=== PATIENT | female | born 1955 | race Caucasian/White ===

== ENCOUNTER 2021-04-20 15:37 | Day surgery (SDC) | payer MEDICARE, OTHER ==
[2021-04-20] MEDS ORDERED: Depo-Medrol 40 MG/ML IM ONE (15:38)
[2021-04-20] MEDS ORDERED: Xylocaine 1% Vial 30 ML PF IJ ONE (15:38)
[2021-04-20] MEDS ORDERED: BUPIVACAINE 0.5% VIAL IJ ONE (15:38)
--- NOTE | 2021-04-20 21:08 | XRAY ---
Indication: Right hip injection. Intraoperative fluoroscopy provided for 13 seconds. Single digital spot image submitted for interpretation demonstrates needle tip just lateral to the right femur head. Small amount of contrast injected for needle tip placement. Correlate with intraoperative findings/report.
--- NOTE | 2021-04-20 21:10 | XRAY ---
13 seconds of fluoroscopy was used in surgery for a right intra-articular hip injection.
== END 2021-04-20 18:13 | disposition home or self-care (01) ==
LOC: SDC-PAIN 15:37
PROVIDERS: ATTEND Psychiatry & Neurology Pain Medicine
DX: M16.11 Unilateral primary osteoarthritis, right hip (principal); E11.9 Type 2 diabetes mellitus without complications; I10 Essential (primary) hypertension; E78.5 Hyperlipidemia, unspecified; Z79.899 Other long term (current) drug therapy
CPT/HCPCS: 20610; 73501; 77002; 82947; J1030; J2001; Q9966

== ENCOUNTER 2024-11-06 14:58 | Day surgery (SDC) | payer MEDICARE, OTHER ==
[2024-11-06] MEDS ORDERED: Decadron 4 MG INJ IV ONE (14:59)
[2024-11-06] MEDS ORDERED: LIDOCAINE HCL 1% AMPUL 5 ML IJ ONE (14:59)
[2024-11-06] MEDS ORDERED: Sodium Chloride 0.9(Preservative Free) 10 ML IJ ONE (14:59)
[2024-11-06] MEDS ORDERED: MORPHINE SULFATE 2 MG INJ ONE (17:07)
--- NOTE | 2024-11-06 19:37 | XRAY ---
Indication: Cervical MAJO. Intraoperative fluoroscopy provided for 36 seconds. Single digital spot images submitted for interpretation demonstrates posterior needle tip projecting posterior to cervical thoracic junction. Small amount of contrast injected for needle tip placement. Correlate with intraoperative findings/report.
--- NOTE | 2024-11-07 09:07 | XRAY ---
36 seconds of fluoroscopy was used in surgery for a cervical MAJO.
== END 2024-11-06 17:32 | disposition home or self-care (01) ==
LOC: SDC-PAIN 14:58
PROVIDERS: ATTEND Psychiatry & Neurology Pain Medicine
DX: M54.12 Radiculopathy, cervical region (principal); E11.9 Type 2 diabetes mellitus without complications
CPT/HCPCS: 62321; 72040; 77003; 82947; J1100; J2270; Q9966

== ENCOUNTER 2025-02-05 10:03 | Day surgery (SDC) | payer MEDICARE, OTHER ==
[2025-02-05] MEDS ORDERED: dexAMETHasone sodium phosphate IJ ONE (10:04)
[2025-02-05] MEDS ORDERED: Sodium Chloride 0.9(Preservative Free) 10 ML IJ ONE (10:04)
[2025-02-05] MEDS ORDERED: propofoL IV ONE (12:14)
[2025-02-05] MEDS ORDERED: MORPHINE SULFATE 2 MG INJ ONE (12:47)
--- NOTE | 2025-02-05 13:20 | XRAY ---
Indication: Right L4-S1 transforaminal MAJO. Intraoperative fluoroscopy provided for 26 seconds. 3 digital spot image submitted for interpretation demonstrates posterior needle tips projecting over expected left L4 and L5 nerve roots. Small amount of contrast injected for needle tip placement. Correlate with intraoperative findings/report.
--- NOTE | 2025-02-05 14:52 | XRAY ---
26 seconds of fluoroscopy was used in surgery for a right L4-S1 transforaminal MAJO.
== END 2025-02-05 13:17 | disposition home or self-care (01) ==
LOC: SDC-PAIN 10:03
PROVIDERS: ATTEND Psychiatry & Neurology Pain Medicine
DX: M54.16 Radiculopathy, lumbar region (principal); E11.9 Type 2 diabetes mellitus without complications
CPT/HCPCS: 64483; 64484; 72100; 77003; 82947; J1100; J2270; J2704; Q9966